=== PATIENT | female | born 1950 ===

== ENCOUNTER → 2023-12-12 11:01 | Outpatient (BNVA) | payer MEDICARE, SELFPAY | PROVIDERS: PCP Registered Nurse; Referring Provider Registered Nurse; Visit Provider Physician Assistant Surgical | DX: J92.9 Pleural plaque without asbestos (principal) | CPT/HCPCS: 36415; 99214 ==

== ENCOUNTER 2023-12-12 17:34 | Outpatient (REF) | payer MEDICARE, SELFPAY ==
[2023-12-12 13:37] LABS: Abs Immature Grans 0.01 10^3/uL (0.0-0.06); Absolute Basophil Count 0.04 10^3/uL (0.0-0.2); Absolute Eosinophil Count 0.09 10^3/uL (0.0-0.7); Absolute Lymphocyte Count 3.03 10^3/uL (1.2-3.4); Absolute Monocyte Count 0.32 10^3/uL (0.1-0.8); Absolute Neutrophil Count 4.45 10^3/uL (1.2-6.7); Basophils % 0.5 %; Eosinophils % 1.1 %; HCT 42.4 % (36.0-46.0); HGB 13.7 g/dL (11.2-15.7); Immature Grans % 0.1 %; Lymphocytes % 38.2 %; MCH 28.4 pg (27.0-33.0); MCHC 32.3 % (32.0-36.0); MCV 88 fL (80-95); MPV 10.5 fL (8.0-11.0); Neutrophils % 56.1 %; Platelet Count 306 10^3/uL (130-400); RBC 4.82 10^6/uL (3.93-5.22); RDW 12.8 % (11.7-14.6); RDW-SD 41.1 fL; WBC 7.94 10^3/uL (4.4-10.8)
[2023-12-12 14:19] LABS: TSH 1.36 uIU/Ml (0.36-3.74)
== END 2023-12-12 17:35 | disposition home or self-care (01) ==
LOC: LBN 17:34
PROVIDERS: PCP Registered Nurse; Visit Provider Physician Assistant Surgical
DX: J92.9 Pleural plaque without asbestos (principal)
CPT/HCPCS: 84443; 85025

== ENCOUNTER → 2024-01-15 10:33 | Outpatient (BNVA) | payer MEDICARE, SELFPAY | PROVIDERS: PCP Registered Nurse; Referring Provider Registered Nurse; Visit Provider Physician Assistant Surgical | DX: J92.9 Pleural plaque without asbestos (principal) | CPT/HCPCS: 99214 ==